=== PATIENT | male | born 1955 | race Two or more races ===

== ENCOUNTER 2022-09-02 15:26 | Inpatient (IN) | payer MEDICAID, OTHER ==
[~2022-09-02] VITALS: Ht 180.3 cm; Wt 95.1 kg
[2022-09-02] MEDS: NOREPINEPHRINE 8 MG/250ML KIT 250 ML IV SCH (15:56)
[2022-09-02 16:00] LABS: Mean Corpuscular Hgb Conc. 30.6 g/dL (32.0-36.0)
[2022-09-02] MEDS ORDERED: SODIUM CHLORIDE 0.9% 1,000 ML IV ONE (16:00)
[2022-09-02 16:01] LABS: Hematocrit 39.1 % (41.0-53.0); Mean Corpuscular Hemoglobin 34.2 pg (28.0-32.0); Mean Corpuscular Volume 111.7 fL (80.0-100.0); Red Cell Distribution Width 15.8 % (11.8-14.3); White Blood Cell 17.3 10^3/uL (4.4-10.8)
[2022-09-02 16:11] LABS: Basophils % (manual) 0 (0.0-2.0); Blast Cells 0; Eosinophils % (manual) 0 (0-7); Promyelocytes % 0; Reactive Lymphocytes 0
[2022-09-02 16:22] LABS: Albumin 2.6 g/dL (3.4-5.0); Calcium 7.7 mg/dL (8.5-10.1); Potassium 3.6 mmol/L (3.5-5.1)
[2022-09-02 16:24] LABS: INR 1.4 (0.9-1.15)
[2022-09-02 16:25] LABS: BUN/Creatinine Ratio 7.8 (10.0-20.0); Bilirubin, Total 1.3 mg/dL (0.2-1.0); Total Protein 6.4 g/dL (6.4-8.2)
[2022-09-02 16:29] LABS: Urine Bacteria NONE SEEN /hpf (None Seen); Urine Blood 3+ /uL (Negative); Urine Hyaline Cast FEW /lpf (0 - 2); Urine Mucus FEW (None Seen); Urine Specific Gravity 1.024 (1.001-1.035); Urine WBC 14 /hpf (0 - 3)
[2022-09-02 16:36] LABS: Lactic Acid w/Reflex 13.9 mmol/L (0.4-2.0)
[2022-09-02 16:46] LABS: Amphetamine Screen, Urine NEGATIVE (NEGATIVE); Barbiturate Scree,Urine NEGATIVE (NEGATIVE); Benzodiazephine Screen, Urine NEGATIVE (NEGATIVE); Cannabinoid Screen, Urine NEGATIVE (NEGATIVE); Cocaine Screen, Urine NEGATIVE (NEGATIVE); Phencyclidine Screen, Urine NEGATIVE (NEGATIVE)
[2022-09-02 16:55] LABS: Opiate Scree,Urine NEGATIVE (NEGATIVE)
[2022-09-02 17:51] LABS: Band Neutrophils % (manual) 12; Lymphocytes % (manual) 59 (10.0-50.0); Metamyelocytes % 1; Monocytes % (manual) 1 (0-12); Myelocytes % 1
[2022-09-02 18:15] VITALS: BP 104/60
[2022-09-02 20:07] VITALS: BP 93/50
[2022-09-02] MEDS ORDERED: MIDAZOLAM DRIP 50 mg/50mL 50 ML IV SCH (20:45)
[2022-09-02] MEDS ORDERED: MIDAZOLAM DRIP 50 mg/50mL 50 ML IV ONE (20:50)
[2022-09-02 21:48] VITALS: BP 89/53
[2022-09-02] MEDS ORDERED: PIPERACILLIN-TAZOB 3.375GM 100 ML IV ONE (22:15)
[2022-09-02] MEDS ORDERED: VANCOMYCIN PER PHARMACY 0 MG IV SCH (22:15)
[2022-09-02] MEDS ORDERED: NITROGLYCERIN 0.4 MG SL TAB SL PRN (22:15)
[2022-09-02] MEDS ORDERED: MORPHINE SULFATE INJ 2 MG/ml SYRG IV PRN (22:15)
[2022-09-02] MEDS ORDERED: ACETAMINOPHEN 325 MG TAB PO PRN (22:15)
[2022-09-02] MEDS ORDERED: ONDANSETRON HCL 4 MG/2 ML VIAL IV PRN (22:15)
[2022-09-02 23:00] VITALS: BP 97/47
[2022-09-02] MEDS ORDERED: VANCOMYCIN 1GM/250ML 250 ML IV SCH (23:00)
[2022-09-02 23:03] LABS: Mean Corpuscular Volume 111.3 fL (80.0-100.0)
[2022-09-02 23:05] LABS: Hemoglobin 11.9 g/dL (13.5-17.5); Mean Corpuscular Hemoglobin 34.1 pg (28.0-32.0); Mean Corpuscular Hgb Conc. 30.6 g/dL (32.0-36.0); Red Cell Distribution Width 15.6 % (11.8-14.3)
[2022-09-02 23:11] LABS: White Blood Cell 33.4 10^3/uL (4.4-10.8)
[2022-09-02] MEDS ORDERED: ACETAMINOPHEN 650 MG RECT SUPP PR ONE ×2 (23:11→23:15)
[2022-09-02 23:13] LABS: Basophils % (manual) 0 (0.0-2.0); Blast Cells 0; Eosinophils % (manual) 0 (0-7); Metamyelocytes % 0; Promyelocytes % 0; Reactive Lymphocytes 0
[2022-09-02] MEDS ORDERED: SODIUM BICARBONATE 50ML VIAL 150 ML in SOD CHL 0.45% 1,000 ML IV ONE ×2 (23:15→23:30)
[2022-09-02] MEDS ORDERED: SODIUM BICARBONATE 8.4 % INJ 50ML VIAL IV ONE ×2 (23:15→23:48)
[2022-09-02] MEDS ORDERED: VANCOMYCIN 1GM/250ML 250 ML IV ONE (23:15)
[2022-09-02 23:18] LABS: Albumin 2.4 g/dL (3.4-5.0); Calcium 7.7 mg/dL (8.5-10.1); Potassium 4.8 mmol/L (3.5-5.1)
[2022-09-02 23:22] LABS: BUN/Creatinine Ratio 5.9 (10.0-20.0); Bilirubin, Total 2.7 mg/dL (0.2-1.0); Total Protein 6.3 g/dL (6.4-8.2)
[2022-09-02 23:27] VITALS: BP 74/39
[2022-09-02 23:40] LABS: Lactic Acid w/Reflex 15.1 mmol/L (0.4-2.0)
[2022-09-02 23:43] LABS: Band Neutrophils % (manual) 38; Lymphocytes % (manual) 19 (10.0-50.0); Monocytes % (manual) 7 (0-12); Myelocytes % 1
[2022-09-03] VITALS (105 sets, daily range): BP systolic 68–162; BP diastolic 16–62
[2022-09-03] MEDS ORDERED: SODIUM CHLORIDE 0.9% 1,000 ML IV ONE (00:45)
[2022-09-03] MEDS ORDERED: SODIUM BICARBONATE 50ML VIAL 150 ML in SOD CHL 0.45% 1,000 ML IV ONE (00:45)
[2022-09-03] MEDS ORDERED: SODIUM CHLORIDE 0.9% 500 ML IV ONE (00:45)
[2022-09-03] MEDS: NOREPINEPHRINE 8 MG/250ML KIT 250 ML IV SCH ×5 (01:08→18:17)
[2022-09-03 01:50] LABS: INR 1.94 (0.9-1.15); Partial Thromboplastin Time 55.5 SEC (24.5-34.5)
[2022-09-03] MEDS ORDERED: SODIUM BICARBONATE 8.4 % INJ 50ML VIAL IV ONE ×3 (03:15→13:15)
[2022-09-03 03:54] LABS: Hematocrit 33.5 % (41.0-53.0); Hemoglobin 10.3 g/dL (13.5-17.5); Mean Corpuscular Hemoglobin 34.9 pg (28.0-32.0); Mean Corpuscular Hgb Conc. 30.9 g/dL (32.0-36.0); Mean Corpuscular Volume 113.1 fL (80.0-100.0); Red Blood Cells 2.96 10^6/uL (4.5-5.90); Red Cell Distribution Width 15.4 % (11.8-14.3)
[2022-09-03 04:08] LABS: Basophils % (manual) 0 (0.0-2.0); Blast Cells 0; Eosinophils % (manual) 0 (0-7); Reactive Lymphocytes 0; White Blood Cell 37.7 10^3/uL (4.4-10.8)
[2022-09-03 04:12] LABS: Albumin 2.1 g/dL (3.4-5.0); Calcium 6.9 mg/dL (8.5-10.1); Potassium 4.6 mmol/L (3.5-5.1)
[2022-09-03 04:19] LABS: BUN/Creatinine Ratio 5.9 (10.0-20.0); Bilirubin, Total 2.9 mg/dL (0.2-1.0); Total Protein 5.3 g/dL (6.4-8.2)
[2022-09-03] MEDS: VASOPRESSIN 20 UNITS in SODIUM CHL 0.9% 99 ML IV SCH ×3 (05:29→22:52)
[2022-09-03] MEDS ORDERED: PIPERACILLIN-TAZOB 3.375GM 100 ML IV SCH (06:00)
[2022-09-03 06:38] LABS: Band Neutrophils % (manual) 40; Lymphocytes % (manual) 22 (10.0-50.0); Metamyelocytes % 1; Monocytes % (manual) 7 (0-12); Myelocytes % 3; Promyelocytes % 3
[2022-09-03] MEDS ORDERED: PHENYLEPHRINE IV 250 ML IV SCH (07:30)
[2022-09-03] MEDS: PANTOPRAZOLE 40mg/50ML NS AE 50 ML IV SCH ×4 (08:15→20:37)
[2022-09-03] MEDS ORDERED: OCTREOTIDE ACETATE 500 MCG in SODIUM CHL 0.9% 99 ML IV SCH (08:30)
[2022-09-03] MEDS ORDERED: OCTREOTIDE ACETATE 100 MCG in SODIUM CHL 0.9% 50 ML IV ONE ×2 (08:30→09:00)
[2022-09-03] MEDS: EPINEPHrine HCL 250 ML IV SCH ×2 (08:45→22:27)
[2022-09-03] MEDS: PHENYLEPHRINE INJ 80 MG in SODIUM CHL 0.9% 242 ML IV SCH ×2 (08:45→17:27)
[2022-09-03] MEDS ORDERED: PHENYLEPHRINE INJ 80 MG in SODIUM CHL 0.9% 242 ML IV SCH (08:45)
[2022-09-03] MEDS: OCTREOTIDE ACETATE 500 MCG in SODIUM CHL 0.9% 99 ML IV SCH ×2 (08:45→15:46)
[2022-09-03] MEDS: SODIUM BICARBONATE 50ML VIAL 150 ML in D5W 5% 1,000 ML IV SCH ×3 (09:00→21:58)
[2022-09-03] MEDS: ALBUMIN 25% 100 ML IV SCH ×2 (09:00→09:05)
[2022-09-03] MEDS: MAGNESIUM SULFATE 1GM/100ML 100 ML IV SCH ×2 (09:00→11:53)
[2022-09-03 09:13] LABS: Cholesterol 141 mg/dL (< 200); HDL Cholesterol 62 mg/dL (40-59); Triglycerides 580 mg/dL (< 150)
[2022-09-03] MEDS ORDERED: OPTISON 3ml Vial for INJ IV ONE (09:47)
[2022-09-03] MEDS ORDERED: MEROPENEM 500MG IVPB 50 ML IV SCH (10:00)
[2022-09-03] MEDS ORDERED: THIAMINE 100mg/ml INJ (200mg/2ml VIAL) IV SCH (10:00)
[2022-09-03] MEDS ORDERED: PANTOPRAZOLE 40 MG/10 ML VIAL INJ IV SCH (10:00)
[2022-09-03] MEDS: MEROPENEM 1GM IVPB 100 ML IV SCH ×2 (11:53→22:49)
[2022-09-03] MEDS ORDERED: VANCOMYCIN 500 MG in D5W 5% 100 ML IV ONE (13:00)
[2022-09-03 18:17] LABS: Hemoglobin 8.3 g/dL (13.5-17.5)
[2022-09-03 18:19] LABS: Hematocrit 27.9 % (41.0-53.0); Mean Corpuscular Hemoglobin 35.1 pg (28.0-32.0); Mean Corpuscular Hgb Conc. 29.9 g/dL (32.0-36.0); Mean Corpuscular Volume 117.3 fL (80.0-100.0); Red Blood Cells 2.38 10^6/uL (4.5-5.90); Red Cell Distribution Width 15.9 % (11.8-14.3)
[2022-09-03 18:23] LABS: White Blood Cell 32.8 10^3/uL (4.4-10.8)
[2022-09-03] MEDS ORDERED: NOREPINEPHRINE BITARTRATE 32 MG in SODIUM CHL 0.9% 218 ML IV SCH (18:30)
[2022-09-03 18:34] LABS: BUN/Creatinine Ratio 5.2 (10.0-20.0); Calcium 6.8 mg/dL (8.5-10.1); Potassium 5.3 mmol/L (3.5-5.1)
[2022-09-03 18:56] LABS: Basophils % (manual) 0 (0.0-2.0); Blast Cells 0; Eosinophils % (manual) 0 (0-7); Myelocytes % 0; Promyelocytes % 0; Reactive Lymphocytes 0
[2022-09-03 18:58] LABS: Band Neutrophils % (manual) 32; Lymphocytes % (manual) 27 (10.0-50.0); Metamyelocytes % 1; Monocytes % (manual) 4 (0-12)
[2022-09-03] MEDS ORDERED: EPINEPHrine HCL 1 MG/10 ML SYRG IV ONE (19:17)
[2022-09-03] MEDS ORDERED: EPINEPHrine HCL 250 ML IV ONE (22:18)
[2022-09-03] MEDS: HYDROCORTISONE SOD SUCC 100 MG/2ML INJ VIAL IV SCH (22:49)
[2022-09-04] VITALS (33 sets, daily range): BP systolic 80–142; BP diastolic 17–43
[2022-09-04] MEDS: PANTOPRAZOLE 40mg/50ML NS AE 50 ML IV SCH ×2 (01:09→05:39)
[2022-09-04] MEDS: OCTREOTIDE ACETATE 500 MCG in SODIUM CHL 0.9% 99 ML IV SCH (02:09)
[2022-09-04 04:35] LABS: Hemoglobin 7.3 g/dL (13.5-17.5)
[2022-09-04 04:37] LABS: Hematocrit 26.7 % (41.0-53.0); Mean Corpuscular Hemoglobin 35.5 pg (28.0-32.0); Mean Corpuscular Hgb Conc. 27.5 g/dL (32.0-36.0); Mean Corpuscular Volume 129.1 fL (80.0-100.0); Red Blood Cells 2.07 10^6/uL (4.5-5.90); Red Cell Distribution Width 16.2 % (11.8-14.3)
[2022-09-04 04:54] LABS: Calcium 6.6 mg/dL (8.5-10.1)
[2022-09-04 04:56] LABS: INR 3.84 (0.9-1.15)
[2022-09-04 04:58] LABS: Albumin 2.2 g/dL (3.4-5.0); Magnesium 2.7 mg/dL (1.6-2.6)
[2022-09-04 05:06] LABS: Bilirubin, Total 3.9 mg/dL (0.2-1.0); Total Protein 4.8 g/dL (6.4-8.2)
[2022-09-04 05:22] LABS: Basophils % (manual) 0 (0.0-2.0); Blast Cells 0; Eosinophils % (manual) 0 (0-7); Metamyelocytes % 0; Myelocytes % 0; Partial Thromboplastin Time 97.9 SEC (24.5-34.5); Promyelocytes % 0; Reactive Lymphocytes 0; White Blood Cell 30.5 10^3/uL (4.4-10.8)
[2022-09-04 05:23] LABS: BUN/Creatinine Ratio 4.5 (10.0-20.0); Potassium 6.3 mmol/L (3.5-5.1)
[2022-09-04] MEDS ORDERED: PANTOPRAZOLE 40 MG/10 ML VIAL INJ IV ONE (05:33)
[2022-09-04 05:41] LABS: Phosphorus 17.7 mg/dL (2.5-4.90)
[2022-09-04] MEDS: HYDROCORTISONE SOD SUCC 100 MG/2ML INJ VIAL IV SCH (05:57)
[2022-09-04 07:40] LABS: Band Neutrophils % (manual) 11; Lymphocytes % (manual) 41 (10.0-50.0); Monocytes % (manual) 10 (0-12)
== END 2022-09-04 07:11 | DRG 871 ==
LOC: ER 15:26 → EDBD 15:26 → TELE 22:27 → ICU WEST 23:33
PROVIDERS: ADMIT Nurse Practitioner; ATTEND Nurse Practitioner Acute Care
PROC: 5A1945Z Respiratory Ventilation, 24-96 Consecutive Hours (ICD-10-PCS; principal; 2022-09-02)
PROC: 0BH17EZ Insertion of Endotracheal Airway into Trachea, Via Natural or Artificial Opening (ICD-10-PCS; 2022-09-02)
PROC: 06HM33Z Insertion of Infusion Device into Right Femoral Vein, Percutaneous Approach (ICD-10-PCS; 2022-09-02)
PROC: 5A12012 Performance of Cardiac Output, Single, Manual (ICD-10-PCS; 2022-09-03)
PROC: 06HN33Z Insertion of Infusion Device into Left Femoral Vein, Percutaneous Approach (ICD-10-PCS; 2022-09-03)
PROC: B54CZZA Ultrasonography of Left Lower Extremity Veins, Guidance (ICD-10-PCS; 2022-09-03)
DX: A41.9 Sepsis, unspecified organism (principal); D65 Disseminated intravascular coagulation [defibrination syndrome]; J69.0 Pneumonitis due to inhalation of food and vomit; J96.01 Acute respiratory failure with hypoxia; R65.21 Severe sepsis with septic shock; G92.8 Other toxic encephalopathy; K72.00 Acute and subacute hepatic failure without coma; N17.0 Acute kidney failure with tubular necrosis; S22.43XA Multiple fractures of ribs, bilateral, initial encounter for closed fracture; J93.9 Pneumothorax, unspecified; D68.9 Coagulation defect, unspecified; S27.329A Contusion of lung, unspecified, initial encounter; K92.2 Gastrointestinal hemorrhage, unspecified; Z66 Do not resuscitate; I46.9 Cardiac arrest, cause unspecified; E66.9 Obesity, unspecified; E87.5 Hyperkalemia; F10.229 Alcohol dependence with intoxication, unspecified; R57.0 Cardiogenic shock; R00.1 Bradycardia, unspecified; R73.9 Hyperglycemia, unspecified; Y93.89 Activity, other specified; Y92.89 Other specified places as the place of occurrence of the external cause; Y99.8 Other external cause status; Z68.29 Body mass index [BMI] 29.0-29.9, adult
CPT/HCPCS: 36415; 36556; 36600; 70450; 71045; 71250; 72125; 73090; 74176; 76705; 80048; 80053; 80061; 80202; 80307; 81001; 82010; 82550; 82805; 83036; 83605; 83735; 83880; 84100; 84443; 84484; 85007; 85025; 85027; 85379; 85610; 85730; 86850; 86900; 86901; 86920; 87040; 87070; 87077; 87081; 87186; 87205; 92950; 93005; 93306; 93886; 93925; 93970; 94002; 94003; 96361; 96365; 96367; 96375; 99291; C9113; G0378; J0171; J2185; J2250; J2543; J7060; P9047; Q9956